=== PATIENT | male | born 1950 | race Caucasian/White ===

== ENCOUNTER 2019-03-03 17:20 | Emergency (ER) | payer MEDICARE ==
--- NOTE | 2019-03-03 17:55 | EDM.PDOC ---
ED HPI GENERAL MEDICAL PROBLEM - General Chief Complaint: Laceration Stated Complaint: HIT IN THE STOMACH WITH WOOD Time Seen by Provider: 03/03/19 17:35 Source of Information: Reports: Patient, Family History Limitations: Reports: No Limitations - History of Present Illness INITIAL COMMENTS - FREE TEXT/NARRATIVE: 68-year-old male with a lower abdominal injury. 3 hours ago he was cutting wood with a table saw when the wood kicked out and struck him hard on the abdomen just above the umbilicus. He had some bleeding but it was just a superficial abrasion, he took a break and sat down for a while and thought he was fine. Later when he was out walking the dog he felt increased pain and burning, his checked him and he had significant bruising around the injury and swelling so they wanted him checked. No active bleeding, no intra- abdominal discomfort, nausea or vomiting or other injury. He is not on anticoagulants. Onset: Gradual Duration: Hour(s): (Symptoms have increased over the past 3 hours) Location: Reports: Abdomen Quality: Reports: Burning, Sharp Associated Symptoms: Reports: No Other Symptoms Abdomen Pain Score (Numeric/FACES): 8 - Related Data Allergies Allergy/AdvReac Type Severity Reaction Status Date / Time No Known Allergies Allergy Verified 03/03/19 17:39 Home Meds: Home Meds Losartan [Cozaar] 100 mg PO DAILY 03/03/19 [History] Simvastatin 20 mg PO DAILY 03/03/19 [History] raNITIdine HCl [Zantac] 150 mg PO DAILY 03/03/19 [History] Past Medical History Cardiovascular History: Reports: High Cholesterol, Hypertension Musculoskeletal History: Reports: Other (See Below) Other Musculoskeletal History: bilateral carpal tunnel syndrome ED ROS GENERAL - Review of Systems Review Of Systems: See Below Constitutional: Denies: Fever, Chills, Decreased Appetite Respiratory: Reports: No Symptoms. Denies: Shortness of Breath Cardiovascular: Denies: Chest Pain GI/Abdominal: Reports: Abdominal Pain. Denies: Nausea, Vomiting Skin: Reports: Other (Significant swelling and bruising around the injury) ED EXAM, SKIN/RASH Exam: See Below Exam Limited By: No Limitations General Appearance: Alert, No Apparent Distress, Other (More comfortable with lying still) Head: Atraumatic Respiratory/Chest: No Respiratory Distress GI/Abdominal: Normal Bowel Sounds, Other (The lower abdomen shows a significant bruised area just above and to the left of the umbilicus. There is a superficial abrasion that is 1.5 x 3 cm, and underlying a 4 to 5 cm firm darkened hematoma in the subcutaneous tissue. Palpation of the abdominal wall is nontender unless palpated over the injury site.) Course - Vital Signs Last Recorded V/S: Last Vital Signs Temp 98.2 F 03/03/19 17:38 Pulse 82 03/03/19 17:38 Resp 18 03/03/19 17:38 BP 127/79 03/03/19 17:38 Pulse Ox 94 L 03/03/19 17:38 - Re-Assessments/Exams Free Text/Narrative Re-Assessment/Exam: 03/03/19 17:53 This patient has an abdominal wall hematoma, no internal injuries suspected. Two 6 inch Janak wraps were given after the wound was dressed, he should layer the Janak wrap with cold compresses and another Janak wrap for the next several days. Anti-inflammatories will help and he was also given 20 hydrocodone to use for extra pain control. Recheck on Tuesday if not improving satisfactorily. Departure - Departure Time of Disposition: 18:05 Disposition: Home, Self-Care 01 Clinical Impression: Traumatic hematoma of abdominal wall - Discharge Information Instructions: Hematoma, [id number] Referrals: Villa Cook NP [Primary Care Provider] - Forms: ED Department Discharge Care Plan Goals: Pressure, cold compresses, pain control will all be beneficial for the next several days. Increase activity as tolerated and recheck on Tuesday if not improving satisfactorily.
== END 2019-03-03 18:05 | disposition home or self-care (01) ==
LOC: JP.ED 17:20
DX: S30.1XXA Contusion of abdominal wall, initial encounter (principal); I10 Essential (primary) hypertension; E78.00 Pure hypercholesterolemia, unspecified; Z79.899 Other long term (current) drug therapy; W20.8XXA Other cause of strike by thrown, projected or falling object, initial encounter; Y93.89 Activity, other specified
CPT/HCPCS: 99283

== ENCOUNTER 2020-01-13 11:41 | Emergency (ER) | payer MEDICARE ==
--- NOTE | 2020-01-13 13:11 | EDM.PDOC ---
ED HPI GENERAL MEDICAL PROBLEM - General Chief Complaint: Eye Problems Stated Complaint: LEFT EYE FLASHES Time Seen by Provider: 01/13/20 12:30 Source of Information: Reports: Patient, RN Notes Reviewed History Limitations: Reports: No Limitations - History of Present Illness INITIAL COMMENTS - FREE TEXT/NARRATIVE: 69-year-old gentleman presents emergency department today with flashing lights to his left eye, he states this started at 8:00 last night he noticed it more in low light conditions also more with fast eye movements he is not having any pain no change in vision - Related Data Allergies Allergy/AdvReac Type Severity Reaction Status Date / Time No Known Allergies Allergy Verified 01/13/20 12:22 Home Meds: Home Meds Losartan [Cozaar] 100 mg PO DAILY 03/03/19 [History] Simvastatin 20 mg PO DAILY 03/03/19 [History] Aspirin 325 mg PO DAILY 10/19/19 [History] Multivitamin 1 tab PO DAILY 10/19/19 [History] diphenhydrAMINE [Benadryl] 25 mg PO ASDIRECTED PRN 10/19/19 [History] Past Medical History Cardiovascular History: Reports: High Cholesterol, Hypertension Musculoskeletal History: Reports: Other (See Below) Other Musculoskeletal History: bilateral carpal tunnel syndrome Social & Family History - Tobacco Use Tobacco Use Status *Q: Never Tobacco User - Caffeine Use Caffeine Use: Reports: Coffee ED ROS GENERAL - Review of Systems Review Of Systems: See Below HEENT: Reports: Other (Flashing light left eye). Denies: Vision Change ED EXAM GENERAL W FULL EYE - Physical Exam Exam: See Below Exam Limited By: No Limitations General Appearance: Alert, WD/WN, No Apparent Distress Eye Exam: Left Eye: Normal Fundi, Bilateral Eye: EOMI, Normal Inspection, PERRL Eyelids: Bilateral: Normal Appearance Conjunctiva & Sclera: Bilateral: Normal Appearance Extraocular Movements: Bilateral: Intact Pupils: Normal Accommodation Pupillary Size: Bilateral: 4 mm Pupillary Reaction: Bilateral: Brisk Anterior Chamber: Left: Normal Appearance Posterior Chamber: Left: Normal Funduscopic Comments: Ultrasound performed reveals normal exam normal with of optic nerve no sign of retinal detachment at the bedside Course - Vital Signs Last Recorded V/S: Last Vital Signs Temp 97.2 F 01/13/20 12:28 Pulse 86 01/13/20 12:28 Resp 14 01/13/20 12:28 BP 135/82 01/13/20 12:28 Pulse Ox 97 01/13/20 12:28 Departure - Departure Time of Disposition: 13:10 Disposition: Home, Self-Care 01 Condition: Fair Clinical Impression: Flashing lights seen - Discharge Information Referrals: Villa Cook, [employer] [Primary Care Provider] - Additional Instructions: Please report to [facility] walk-in clinic [id number] [facility] at that time you will be seeing Dr. Cisneros from optometry your appointment time is at 3 PM plan for eye dilation for an extensive exam Sepsis Event Note (ED) - Evaluation Sepsis Screening Result: No Definite Risk - Focused Exam Vital Signs: Vital Signs Temp Pulse Resp BP Pulse Ox 01/13/20 12:28 97.2 F 86 14 135/82 97 - Assessment/Plan Plan: Assessment Acuity = acute Site and laterality = flashing lights left eye Etiology = unknown Manifestations = none Location of injury = Home Lab values = none Plan Called discussed the case with Dr. Cisneros [id number] kindly agreed to evaluate the patient at [facility] 1500 today This note was dictated using [employer] voice recognition software please call with any questions on syntax or grammar.
== END 2020-01-13 13:18 | disposition home or self-care (01) ==
LOC: JP.ED 11:41
DX: H53.8 Other visual disturbances (principal); I10 Essential (primary) hypertension; E78.00 Pure hypercholesterolemia, unspecified; Z79.82 Long term (current) use of aspirin; Z79.899 Other long term (current) drug therapy
CPT/HCPCS: 99283-25

== ENCOUNTER 2023-05-20 07:59 | Day surgery (SDC) | payer MEDICARE ==
[~2023-05-20 07:59] MED LIST: Propofol 200 MG/20 ML SDV ONE; fentaNYL 100 MCG/2 ML SDV ONE
[2023-05-20] MEDS: Lactated Ringers 1,000 ML IV SCH (08:15)
[2023-05-20] MEDS ORDERED: Propofol 200 MG/20 ML SDV ONE (10:34)
== END 2023-05-20 12:20 | disposition home or self-care (01) ==
LOC: JP.SDS 07:59
PROVIDERS: ATTEND Student in an Organized Health Care Education/Training Program
DX: Z12.11 Encounter for screening for malignant neoplasm of colon (principal); D12.0 Benign neoplasm of cecum; D12.3 Benign neoplasm of transverse colon; D12.8 Benign neoplasm of rectum; K57.30 Diverticulosis of large intestine without perforation or abscess without bleeding; I10 Essential (primary) hypertension; E78.5 Hyperlipidemia, unspecified; Z79.899 Other long term (current) drug therapy
CPT/HCPCS: 45380; 45385; 88305; J2704; J3010; J7120

== ENCOUNTER 2025-03-02 16:19 | Emergency (ER) | payer MEDICARE | END 2025-03-02 17:37 | disposition home or self-care (01) | LOC: JP.ED 16:19 | DX: S05.02XA Injury of conjunctiva and corneal abrasion without foreign body, left eye, initial encounter (principal); I10 Essential (primary) hypertension; E78.00 Pure hypercholesterolemia, unspecified; Z86.16 Personal history of COVID-19; Z91.048 Other nonmedicinal substance allergy status; Z79.899 Other long term (current) drug therapy; W44.8XXA Other foreign body entering into or through a natural orifice, initial encounter | CPT/HCPCS: 99283; A9270 ==

== ENCOUNTER 2025-03-15 06:41 | Day surgery (SDC) | payer MEDICARE ==
[2025-03-15] MEDS ORDERED: Propofol 200 MG/20 ML SDV ONE (07:00)
[2025-03-15] MEDS ORDERED: fentaNYL 50 MCG/ML SDV ONE (07:00)
[2025-03-15] MEDS: Lactated Ringers 1,000 ML IV SCH (07:15)
== END 2025-03-15 10:52 | disposition home or self-care (01) ==
LOC: JP.SDS 06:41
PROVIDERS: ATTEND Surgery
DX: Z12.11 Encounter for screening for malignant neoplasm of colon (principal); D12.2 Benign neoplasm of ascending colon; K57.30 Diverticulosis of large intestine without perforation or abscess without bleeding; E78.00 Pure hypercholesterolemia, unspecified; I10 Essential (primary) hypertension; Z79.899 Other long term (current) drug therapy; Z86.0100 Personal history of colon polyps, unspecified
CPT/HCPCS: 45380; J2704; J3010; J7120; 00811-QZ; 88305